=== PATIENT | female | born 1950 | race African-American/Black ===

== ENCOUNTER 2021-08-25 12:33 | Outpatient (CLI) | payer MEDICARE, OTHER ==
[2021-08-25] MEDS ORDERED: Gadobenate Dimeglumine 529 MG/1 ML (20ML VIAL) ONE (14:29)
== END 2021-08-25 12:34 | disposition home or self-care (01) ==
LOC: BICMRI 12:33
PROVIDERS: ATTEND Nurse Practitioner Family
DX: M54.14 Radiculopathy, thoracic region (principal); R22.2 Localized swelling, mass and lump, trunk
CPT/HCPCS: 72157; 82565; A9577

== ENCOUNTER 2021-09-14 13:15 | Outpatient (CLI) | payer MEDICARE, OTHER | END 2021-09-14 13:16 | disposition home or self-care (01) | LOC: PET 13:15 | PROVIDERS: ATTEND Nurse Practitioner Family | DX: C79.51 Secondary malignant neoplasm of bone (principal); M89.8X8 Other specified disorders of bone, other site; M54.14 Radiculopathy, thoracic region; K62.89 Other specified diseases of anus and rectum; C79.89 Secondary malignant neoplasm of other specified sites; C78.7 Secondary malignant neoplasm of liver and intrahepatic bile duct; C77.1 Secondary and unspecified malignant neoplasm of intrathoracic lymph nodes; M84.48XA Pathological fracture, other site, initial encounter for fracture; C80.1 Malignant (primary) neoplasm, unspecified | CPT/HCPCS: 78815; A9552 ==